=== PATIENT | female | born 1965 | race Caucasian/White ===

== ENCOUNTER 2019-04-16 15:10 | Emergency (ER) | payer BC, OTHER | END 2019-04-16 16:18 | disposition home or self-care (01) | LOC: JERFT 15:10 ==

== ENCOUNTER 2021-03-20 09:16 | Emergency (ER) | payer BC, OTHER ==
[2021-03-20 09:32] VITALS: TEMP 97.5; BMI 37.9
[2021-03-20] MEDS ORDERED: ACETAMINOPHEN 325 MG TABLET (FP) PO ONE (10:12)
[2021-03-20] MEDS ORDERED: ACETAMINOPHEN 325 MG TABLET (FP) ONE (10:30)
[2021-03-20 10:55] LABS: BASO % 0.8 % (0-2.0); EOS % 2.6 % (0-4.5); HEMATOCRIT 40.8 % (32.4-45.2); HEMOGLOBIN 13.7 GM/dL (10.7-15.3); MCH 29.6 pg (25.7-33.7); MCHC 33.5 g/dl (32.0-36.0); MEAN CELL VOLUME 88.5 fl (80-96); MEAN PLT VOLUME 8.8 fl (7.5-11.1); MONO % 7.1 % (3.8-10.2); NEUT % 60.5 % (42.8-82.8); PLATELET COUNT 259 10^3/uL (134-434); RBC 4.61 M/mm3 (3.60-5.2); RDW 14.2 % (11.6-15.6); WHITE BLOOD COUNT 3.9 K/mm3 (4.0-10.0)
[2021-03-20 11:17] LABS: CHLORIDE 111 mmol/L (98-107); SODIUM 141 mmol/L (136-145)
[2021-03-20 11:19] LABS: CALCIUM 9.1 mg/dL (8.5-10.1)
[2021-03-20 11:20] LABS: ALBUMIN 3.9 g/dl (3.4-5.0); ANION GAP 6 MMOL/L (8-16); BLOOD UREA NITROGEN 12.9 mg/dL (7-18); CO2 24 mmol/L (21-32); GLUCOSE,RANDOM 93 mg/dL (74-106)
[2021-03-20 11:23] LABS: CREATININE 0.7 mg/dL (0.55-1.3); SGOT/AST 24 U/L (15-37); SGPT/ALT 40 U/L (13-61)
[2021-03-20 11:24] LABS: BILIRUBIN,TOTAL 0.6 mg/dL (0.2-1)
[2021-03-20 11:26] LABS: ALK PHOS 65 U/L (45-117)
[2021-03-20 12:47] VITALS: BP 136/78; PULSE 68
== END 2021-03-20 12:41 | disposition home or self-care (01) ==
LOC: JER 09:16
DX: M94.0 Chondrocostal junction syndrome [Tietze] (principal); R07.89 Other chest pain
CPT/HCPCS: 36415; 71046-TC-FY; 80053; 82550; 84484; 85025; 93005; 93010; 99285-25